=== PATIENT | female | born 1965 | race Two or more races ===

== ENCOUNTER 2019-10-19 16:45 | Emergency (ER) | payer OTHER ==
[~2019-10-19] VITALS: Ht 177.8 cm; Wt 82.7 kg
[2019-10-19] MEDS ORDERED: ONDANSETRON HCL 4 MG TABLET PO ONE (18:15)
[2019-10-19] MEDS ORDERED: KETOROLAC TROMETHAMINE 60 MG/2 ML VIAL IM ONE (18:15)
[2019-10-19] MEDS ORDERED: FLUO-191 PO (18:39)
[2019-10-19] MEDS ORDERED: FLUT16H NASAL (18:39)
[2019-10-19] MEDS ORDERED: TRAZ-257 PO (18:39)
[2019-10-19] MEDS ORDERED: LISI-662 PO (18:39)
[2019-10-19] MEDS ORDERED: NALT50TA6 PO (18:39)
[2019-10-19] MEDS ORDERED: ASPI-728 PO (18:39)
[2019-10-19 20:56] VITALS: BP 119/68
== END 2019-10-19 21:00 | disposition home or self-care (01) ==
LOC: EMS 16:46
DX: G44.209 Tension-type headache, unspecified, not intractable (principal); I10 Essential (primary) hypertension; F41.9 Anxiety disorder, unspecified; Z90.710 Acquired absence of both cervix and uterus
CPT/HCPCS: 70450; 82948; 96372; 99284; J1885; Q0162